=== PATIENT | male | born 1990 | race Caucasian/White ===

== ENCOUNTER 2017-05-23 11:35 | Emergency (ER) | payer MEDICAID ==
[~2017-05-23] VITALS: Ht 177.8 cm; Wt 106.0 kg
[2017-05-23 11:37] VITALS: Ht 177.8 cm; Wt 106.0 kg
[2017-05-23] MEDS ORDERED: HYDROCODONE/APAP (5/325) TAB PO ONE (12:00)
--- NOTE | 2017-05-23 12:35 | RADRPT ---
PROCEDURE: XR Hand. CLINICAL INDICATION: Partially wall. TECHNIQUE: Three views of the right hand were obtained. COMPARISON: No prior studies are available for comparison. FINDINGS: The bones of the hand appear intact, with no evidence of fracture, dislocation, or subluxation. Ther e is suggestion of minimal healed post fracture deformity of the fifth metacarpal. The joint spaces are preserved. Bone mineralization is normal. Mild soft tissue swelling is seen. IMPRESSION: 1. No acute osseous abnormality. 2. Mild soft tissue swelling. RPTAT: PP .Ney Hull MD, MD Date Time Electronically viewed and signed by .Ney Hull MD, MD on 05/23/2017 12:34 .d/
[2017-05-23] MEDS ORDERED: AMOX1TAB10 PO (13:07)
[2017-05-23] MEDS ORDERED: NAPR-688 PO (13:07)
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
== END 2017-05-23 13:21 | disposition home or self-care (01) ==
LOC: FTE 11:35
DX: L03.90 Cellulitis, unspecified (principal); S60.221A Contusion of right hand, initial encounter; W55.03XA Scratched by cat, initial encounter; Y92.9 Unspecified place or not applicable; Z87.891 Personal history of nicotine dependence
CPT/HCPCS: 73130; Z7502; Z7610

== ENCOUNTER 2017-08-04 12:50 | Emergency (ER) | payer OTHER ==
[~2017-08-04] VITALS: Ht 177.8 cm; Wt 109.0 kg
[~2017-08-04 12:50] MED LIST: AMOX1TAB10 PO; BEN25 PO; LORA10TA72 PO; NAPR-688 PO; NASO17 NASAL
[2017-08-04 13:29] VITALS: Ht 177.8 cm; Wt 109.0 kg
[2017-08-04] MEDS ORDERED: IPRATROPIUM (NEB) 0.5 MG/2.5 ML AMP NEB STA (16:32)
[2017-08-04] MEDS ORDERED: ALBUTEROL 0.083% (NEB) 2.5 MG/3 ML AMP NEB STA (16:32)
--- NOTE | 2017-08-04 16:34 | ERD ---
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 Patient has a secondary complaint of a smelly itchy scalp even after washing. ROS All systems reviewed and are negative except as per history of present illness. Medications Home Meds Active Scripts Albuterol Sulfate* (Proair HFA*) 8.5 Gm Hfa.aer.ad, 2 PUFF INH Q4, #1 INHALER Prov:SAMIA,FACUNDO 08/04/17 Doxycycline Hyclate* (Doxycycline Hyclate*) 100 Mg Tablet.dr, 100 MG PO BID for 7 Days, TAB Prov:SAMIA,FACUNDO 08/04/17 Diphenhydramine Hcl* (Benadryl*) 25 Mg Cap, 25 MG PO Q8 Y for ITCHING/RASH, #30 TAB Prov:RYAN GILL 07/17/17 Mometasone Furoate* (Nasonex*) 50 Mcg/Helen - 17 Gm Helen.pump, 2 SPRAY NASAL DAILY, #1 BOTTLE TO EACH NOSTRIL Prov:RYAN GILL 07/17/17 Loratadine (Loratadine) 10 Mg Tab.rapdis, 10 MG PO DAILY for 30 Days Prov:RYAN GILL 07/17/17 Naproxen* (Naproxen*) 500 Mg Tablet, 500 MG PO BID Y for PAIN, #20 TAB Prov:JAMAL RAMSEY DO 05/23/17 Amoxicillin/Potassium Clav (Amox-Clav 875-125 mg Tablet) 875-125 mg Tab, 1 TAB PO BID, #20 TAB Prov:JAMAL RAMSEY DO 05/23/17 Allergies Allergies: Coded Allergies: No Known Drug Allergies (Verified Allergy, Mild, 05/23/17) PMhx/Soc History of Surgery: No Anesthesia Reaction: No Hx Neurological Disorder: No Hx Respiratory Disorders: Yes (PNEUMONIA) Hx Cardiac Disorders: No Hx Psychiatric Problems: No Hx Miscellaneous Medical Probl: No Hx Alcohol Use: No Hx Substance Use: No Hx Tobacco Use: No Physical Exam Vitals Vital Signs Date Time Temp Pulse Resp B/P Pulse Ox O2 Delivery O2 Flow Rate FiO2 08/04/17 16:55 78 20 96 21 08/04/17 13:29 97.8 71 18 149/91 98 Vitals stable, triage notes reviewed Physical Exam Const: Well-appearing well-hydrated well-nourished male patient in no acute distress Head: Atraumatic , No scaly scalp, dandruff, papule, abrasion or lesions Eyes: Normal Conjunctiva, PERRLA, EOMI ENT: Bilateral tympanic membranes retracted, auditory canals are clear, nasal mucosa is edematous, turbinates +1, mucus noted, no crest or bleeding points. Pharynx is +3, tonsillar scarring with pitting, pink, mucous notedno ulcers, exudate, or blisters. Palpable cervical chain nodes Neck: Full range of motion..~ No meningismus. Resp: Clear to auscultation bilateral palpable cervical chain nodes, Cardio: Abd: Skin: Back: Ext: Neur: Awake and alert Psych: Normal Mood and Affect Results 24 hrs Current Medications Medications (Trade) Dose Ordered Sig/Milena Route PRN Reason Start Time Stop Time Status Last Admin Dose Admin Albuterol (Proventil 0.083% (Neb)) 5 mg ONCE STAT NEB 08/04/17 16:32 08/04/17 16:34 DC 08/04/17 16:51 Ipratropium [place] (Atrovent 0.02% (Neb)) 0.5 mg ONCE STAT NEB 08/04/17 16:32 08/04/17 16:34 DC 08/04/17 16:51 Ceftriaxone Sodium (Rocephin) 250 mg ONCE ONCE IM 08/04/17 17:30 08/04/17 17:31 DC 08/04/17 17:49 Azithromycin (Zithromax) 1,000 mg ONCE ONCE PO 08/04/17 17:30 08/04/17 17:31 DC 08/04/17 17:49 Lidocaine (Xylocaine 1% (Mdv) 20 ml) 20 ml STK-MED ONCE .ROUTE 08/04/17 17:40 08/04/17 17:41 DC Procedures/MDM This pleasant 27-year-old male patient presents to emergency department with several complaints. 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 Patient is requesting STD evaluation. Patient also reports that he has a odd smelling scalp even after washing, reports when he scratches it he gets thick scale. Patient emergency room course today includes a rapid strep swab, gonorrhea swab in throat. Prophylactic treatment for gonorrhea with 250 mg of intramuscularly of Rocephin and 1000 mg of azithromycin. Patient received albuterol, Atrovent hand-held nebulized treatment for shortness of breath and decreased breath sounds. Patient reassessed after interventions reported improvement of symptoms plan to discharge patient home with doxycycline, and an albuterol inhaler. Safe sex practices discussed. Patient is stable with no new complaints during ER course, clinically there is no current evidence to suggest meningitis,pneumonia, peritonsillar abscess pulmonary embolism or any other emergent condition appearing to require further evaluation or hospitalization. I feel the patient is stable for discharge at this time. I have discussed results, examination findings, the treatment plan with the patient and family present prior to discharge. Indications for emergent reevaluation, side effects of medication were also discussed. All questions were answered. Patient verbalizes understanding and agrees with plan of care. Departure Diagnosis: Primary Impression: STI (sexually transmitted infection) Additional Impression: Bronchitis Patient Instructions: Acute Bronchitis, If You Think You Have an STD Referrals: [facility] Additional Instructions: Thank you for for coming to [facility] for your care today. Please ask your nurse or provider if you have questions about your care today and do not leave until all your questions have been answered. Please use any medications given as directed and follow-up with your doctor (or the doctor you were referred to) in the next 2-3 days. If you do not have a primary care doctor you may follow up at the [facility] (listed below). You may also use motrin and tylenol as needed for fever and/or pain unless instructed otherwise by your provider or nurse. Indications for more urgent follow-up have been discussed, but you may return to the Emergency Department at ANY time for any worrisome or worsening symptoms. If you have abdominal pain, please know that no test or exam you received is perfect and you should follow up within 8 hours for continued pain. If you had any imaging studies today, such as an X-Ray or CT Scan, these studies will be reviewed later by a radiologist. You will be called if there are important findings that were not identified today, so make sure the contact information you provided at registration is correct. If you received any narcotic pain control medicine today, such as Vicodin, Morphine or Dilaudid, your coordination and judgment may be affected for a number of hours. Please do not drive or operate heavy machinery, and you may want someone to assist you at home. If you were given a prescription for narcotic medication, be aware that it is very addictive- use sparingly and only if necessary. FACUNDO GRACIA Aug 04, 2017 16:34
[2017-08-04] MEDS ORDERED: ALBU8.5H3 INH (17:21)
[2017-08-04] MEDS ORDERED: DOXY100T20 PO (17:21)
[2017-08-04] MEDS ORDERED: CEFTRIAXONE 250 MG INJ IM ONE (17:30)
[2017-08-04] MEDS ORDERED: AZITHROMYCIN 250 MG TAB PO ONE (17:30)
[2017-08-04] MEDS ORDERED: LIDOCAINE 1% (MDV) 20 ML INJ ONE (17:40)
== END 2017-08-04 18:07 | disposition home or self-care (01) ==
LOC: FTE 12:50
DX: A64 Unspecified sexually transmitted disease (principal); J20.9 Acute bronchitis, unspecified
CPT/HCPCS: 87070; 87880; 94664; 96372; J0696; Z7502; Z7610

== ENCOUNTER 2017-08-21 15:31 | Emergency (ER) | payer OTHER ==
[~2017-08-21] VITALS: Ht 167.6 cm; Wt 110.5 kg
[~2017-08-21 15:31] MED LIST changes: +ALBU8.5H3 INH; +DOXY100T20 PO
[2017-08-21 15:34] VITALS: Ht 167.6 cm; Wt 110.5 kg
[2017-08-21] MEDS ORDERED: ALBUTEROL 0.083% (NEB) 2.5 MG/3 ML AMP NEB STA (16:31)
--- NOTE | 2017-08-21 18:25 | RADRPT ---
PROCEDURE: Chest radiograph CLINICAL INDICATION: Shortness of breath. COMPARISON: None relevant listed. TECHNIQUE: Single frontal chest radiograph. FINDINGS: The lungs are clear. No pleural effusion or focal parenchymal opacity. The cardiomediastinal silhouette is normal. No suspicious bone lesion. IMPRESSION: No acute cardiopulmonary abnormality. RPTAT: PP Physician Demetrius Date Time Electronically viewed and signed by Rosi Mccarty Physician on 08/21/2017 18:24 LG/
[2017-08-21 18:40] VITALS: BP 135/74; PULSE 81; RESP 20; TEMP 97.3
[2017-08-21] MEDS ORDERED: ALBU8.5H3 INH (18:44)
[2017-08-21] MEDS ORDERED: LORA10CA PO (18:44)
[2017-08-21] MEDS ORDERED: ACET-2047 PO (18:45)
--- NOTE | 2017-08-21 19:03 | ERD ---
ER Documentation Chief Complaint Date/Time DATE: 08/21/17 TIME: 18:49 Chief Complaint Complains of SOB coughs up blood at times HPI This Is a 27-year-old male bipolar disorder recently released from [facility] presenting to the emergency department complaining of cough and shortness of breath for the past 2 weeks. Patient states that he coughs up yellow mucus that once had blood specks from coughing in the mornings. Patient states that he was evaluated at this facility 2 weeks prior to being seen and has received albuterol which has helped him. Patient denies any recent traveling, recent surgeries, or other medications. Patient admits to having a sore throat. Patient admits to having palpitations at this moment however he states that he just did 10 push-ups in the termination room because he was bored ROS All systems reviewed and are negative except as per history of present illness. Medications Home Meds Active Scripts Acetaminophen* (Acetaminophen*) 650 Mg Tablet, 650 MG PO Q6H Y for PAIN AND OR ELEVATED TEMP, #30 TAB Prov:MAKAYLA TO PA-C 08/21/17 Loratadine* (Claritin*) 10 Mg Capsule, 10 MG PO DAILY, #30 CAP Prov:MAKAYLA TO PA-C 08/21/17 Albuterol Sulfate* (Proair HFA*) 8.5 Gm Hfa.aer.ad, 2 PUFF INH Q4H Y for WHEEZING AND SOB, #1 INHALER Prov:MAKAYLA TO PA-C 08/21/17 Albuterol Sulfate* (Proair HFA*) 8.5 Gm Hfa.aer.ad, 2 PUFF INH Q4, #1 INHALER Prov:SAMIA,FACUNDO 08/04/17 Doxycycline Hyclate* (Doxycycline Hyclate*) 100 Mg Tablet.dr, 100 MG PO BID for 7 Days, TAB Prov:SAMIA,FACUNDO 08/04/17 Diphenhydramine Hcl* (Benadryl*) 25 Mg Cap, 25 MG PO Q8 Y for ITCHING/RASH, #30 TAB Prov:PASILABAN,ORALIAAR F 07/17/17 Mometasone Furoate* (Nasonex*) 50 Mcg/[place]iberty - 17 Gm Liberty.pump, 2 SPRAY NASAL DAILY, #1 BOTTLE TO EACH NOSTRIL Prov:RYAN GILL 07/17/17 Loratadine (Loratadine) 10 Mg Tab.rapdis, 10 MG PO DAILY for 30 Days Prov:RYAN GILL 07/17/17 Naproxen* (Naproxen*) 500 Mg Tablet, 500 MG PO BID Y for PAIN, #20 TAB Prov:JAMAL RAMSEY DO 05/23/17 Amoxicillin/Potassium Clav (Amox-Clav 875-125 mg Tablet) 875-125 mg Tab, 1 TAB PO BID, #20 TAB Prov:JAMAL RAMSEY DO 05/23/17 Allergies Allergies: Coded Allergies: No Known Drug Allergies (Verified Allergy, Mild, 05/23/17) PMhx/Soc History of Surgery: No Anesthesia Reaction: No Hx Neurological Disorder: No Hx Respiratory Disorders: Yes (PNEUMONIA) Hx Cardiac Disorders: No Hx Psychiatric Problems: Yes (bipolar) Hx Miscellaneous Medical Probl: No Hx Alcohol Use: No Hx Substance Use: No Hx Tobacco Use: No Physical Exam Vitals Vital Signs Date Time Temp Pulse Resp B/P Pulse Ox O2 Delivery O2 Flow Rate FiO2 08/21/17 18:40 97.3 81 20 135/74 98 Room Air 08/21/17 16:57 77 20 94 21 08/21/17 15:34 98.7 66 20 131/78 94 Physical Exam Const: NAD Head: Atraumatic Eyes: Normal Conjunctiva ENT: Normal External Ears, Nose and Mouth. Neck: Full range of motion..~ No meningismus. Resp: Clear to auscultation bilaterally Cardio: Regular rate and rhythm, no murmurs Abd: Soft, non tender, non distended. Normal bowel sounds Skin: No petechiae or rashes Back: No midline or flank tenderness Ext: No cyanosis, or edema Neur: Awake and alert Psych: Normal Mood and Affect Results 24 hrs Current Medications Medications (Trade) Dose Ordered Sig/Milena Route PRN Reason Start Time Stop Time Status Last Admin Dose Admin Albuterol (Proventil 0.083% (Neb)) 5 mg ONCE STAT NEB 08/21/17 16:31 08/21/17 16:33 DC 08/21/17 16:54 Procedures/MDM This is a 27-year-old male presenting to the emergency department combining of shortness of breath, cough for the past 2 weeks. On examination, patient did not have any evidence of respiratory distress. RT was consulted initially he was given albuterol since it has helped him 2 weeks prior to being seen, I have reassessed him and he states that he feels a lot better. Patient's pulse ox is 90%. He stable to be discharged home to follow-up with primary. There was no evidence of pulmonary embolism, respiratory distress, pneumonia. Chest x-ray did not show any evidence of infiltrates, pneumothorax or pleural effusion. EKG did not show any evidence of STEMI. Patient stable to be discharged home with prescription for albuterol and to follow-up with primary care physician. Discussed return to the ER for any worsening symptoms. He understands and agrees with this plan EKG: read and signed off by myself and Rate/Rhythm: [Normal Sinus Rhythm] QRS, ST, T-waves: [No changes consistent w/ acute ischemia] Impression: [No evidence of ischemia or arrhythmia] Departure Diagnosis: Primary Impression: Shortness of breath Additional Impression: URI (upper respiratory infection) Condition: Stable Patient Instructions: Coping with Shortness of Breath: Controlling Stress, Uri , Viral W/ Wheezing (Adult) Referrals: [facility] (PCP) Additional Instructions: FOLLOW UP WITH YOUR PRIMARY CARE PHYSICIAN TOMORROW.Return to this facility if you are not improving as expected. Take all medicines as directed. Return to this facility if you are not improving as expected. MAKAYLA TO PA-C Aug 21, 2017 18:59
== END 2017-08-21 18:56 | disposition home or self-care (01) ==
LOC: FTE 15:31
DX: R06.02 Shortness of breath (principal); J06.9 Acute upper respiratory infection, unspecified
CPT/HCPCS: 71010; 93005; 94664; Z7502; Z7610

== ENCOUNTER 2017-09-03 20:04 | Emergency (ER) | payer OTHER ==
[~2017-09-03] VITALS: Ht 177.8 cm; Wt 111.0 kg
[~2017-09-03 20:04] MED LIST changes: +ACET-2047 PO; +LORA10CA PO
[2017-09-03 20:39] VITALS: Ht 177.8 cm; Wt 111.0 kg
[2017-09-03] MEDS ORDERED: AZITHROMYCIN 250 MG TAB PO ONE (23:00)
[2017-09-03] MEDS ORDERED: CEFTRIAXONE 250 MG INJ IM ONE (23:00)
--- NOTE | 2017-09-03 23:13 | ERD ---
ER Documentation Chief Complaint Date/Time DATE: 09/03/17 TIME: 23:09 Chief Complaint SOB for 1 month PCP sent back HPI 27-year-old male presents here in emergency department for complaints of episodes of shortness breath and wheezing and cough for the last 1 month. Patient was given an inhaler by primary care doctor, has been having on and off. Patient also has been having some itchy nose, runny nose nasal congestion and sneezing. Patient denies any fever or chills. Patient denies any chest pain. Patient also wants to be checked for STDs, has been having sexual intercourse without any protection and wants to be treated. Patient denies any symptoms at this time, denies any dysuria, pyuria, or any discharge. ROS All systems reviewed and are negative except as per history of present illness. Medications Home Meds Active Scripts Acetaminophen* (Acetaminophen*) 650 Mg Tablet, 650 MG PO Q6H Y for PAIN AND OR ELEVATED TEMP, #30 TAB Prov:MAKAYLA TO PA-C 08/21/17 Loratadine* (Claritin*) 10 Mg Capsule, 10 MG PO DAILY, #30 CAP Prov:MAKAYLA TO PA-C 08/21/17 Albuterol Sulfate* (Proair HFA*) 8.5 Gm Hfa.aer.ad, 2 PUFF INH Q4H Y for WHEEZING AND SOB, #1 INHALER Prov:MAKAYLA TO PA-C 08/21/17 Albuterol Sulfate* (Proair HFA*) 8.5 Gm Hfa.aer.ad, 2 PUFF INH Q4, #1 INHALER Prov:SAMIA,FACUNDO 08/04/17 Doxycycline Hyclate* (Doxycycline Hyclate*) 100 Mg Tablet.dr, 100 MG PO BID for 7 Days, TAB Prov:SAMIA,FACUNDO 08/04/17 Diphenhydramine Hcl* (Benadryl*) 25 Mg Cap, 25 MG PO Q8 Y for ITCHING/RASH, #30 TAB Prov:RYAN GILL 07/17/17 Mometasone Furoate* (Nasonex*) 50 Mcg/[place] - 17 Gm [place].pump, 2 SPRAY NASAL DAILY, #1 BOTTLE TO EACH NOSTRIL Prov:PASILAMALVINKLAR F 07/17/17 Loratadine (Loratadine) 10 Mg Tab.rapdis, 10 MG PO DAILY for 30 Days Prov:RYAN GILL 07/17/17 Naproxen* (Naproxen*) 500 Mg Tablet, 500 MG PO BID Y for PAIN, #20 TAB Prov:JAMAL RAMSEY DO 05/23/17 Amoxicillin/Potassium Clav (Amox-Clav 875-125 mg Tablet) 875-125 mg Tab, 1 TAB PO BID, #20 TAB Prov:JAMAL RAMSEY DO 05/23/17 Allergies Allergies: Coded Allergies: No Known Drug Allergies (Verified Allergy, Mild, 05/23/17) PMhx/Soc History of Surgery: No Anesthesia Reaction: No Hx Neurological Disorder: No Hx Respiratory Disorders: Yes (PNEUMONIA) Hx Cardiac Disorders: No Hx Psychiatric Problems: Yes (bipolar) Hx Miscellaneous Medical Probl: No Hx Alcohol Use: No Hx Substance Use: No Hx Tobacco Use: No Smoking Status: Never smoker FmHx Family History: No coronary disease, No diabetes, No other Physical Exam Vitals Vital Signs Date Time Temp Pulse Resp B/P Pulse Ox O2 Delivery O2 Flow Rate FiO2 09/03/17 20:39 99.5 67 16 156/90 95 Physical Exam GENERAL: The patient is well developed and appropriate for usual state of health, in no apparent distress. CHEST: Clear to auscultation bilaterally. There are no rales, wheezes or rhonchi. HEART: Regular rate and rhythm. No murmurs, clicks, rubs or gallops. No S3 or S4. ABDOMEN: Soft, nontender and nondistended. Good bowel sounds. No rebound or guarding. No gross peritonitis. No gross organomegaly or masses. No Vivas sign or McBurney point tenderness. BACK: No midline or flank tenderness. EXTREMITIES: Equal pulses bilaterally. There is no peripheral clubbing, cyanosis or edema. No focal swelling or erythema. Full range of motion. Grossly neurovascularly intact. NEURO: Alert and oriented. Cranial nerves 2-12 intact. Motor strength in all 4 extremities with 5/5 strength. Sensation grossly intact. Normal speech and gait. SKIN: There is no apparent rash or petechia. The skin is warm and dry. HEMATOLOGIC AND LYMPHATIC: There is no evidence of excessive bruising or lymphedema. No gross cervical, axillary, or inguinal lymphadenopathy. Results 24 hrs Current Medications Medications (Trade) Dose Ordered Sig/Milena Route PRN Reason Start Time Stop Time Status Last Admin Dose Admin Ceftriaxone Sodium (Rocephin) 250 mg ONCE ONCE IM 09/03/17 23:00 09/03/17 23:01 DC 09/03/17 23:33 Azithromycin (Zithromax) 1,000 mg ONCE ONCE PO 09/03/17 23:00 09/03/17 23:01 DC 09/03/17 23:31 IM Rocephin and azithromycin was given here in emergency department for treatment for possible STD exposure. PROCEDURE: XR Chest. CLINICAL INDICATION: Dyspnea and wheezing. TECHNIQUE: Single frontal view of the chest. COMPARISON: None. FINDINGS: The cardiomediastinal silhouette is within normal limits. The lungs are clear. No signs of pleural fluid or pneumothorax are seen. The osseous structures and soft tissues are unremarkable. IMPRESSION: No evidence for active cardiopulmonary disease. 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 There is low suspicion for Pneumonia at this time since patients lungs sounds are clear, patient O2 saturation is normal and patient doesnt show any respiratory distress. Patients chest xray doesnt show infiltrates or any other cardiopulmonary emergencies at this time. There is low suspicion for other cardiopulmonary emergencies at this time such as CHF, Pulmonary Embolism, Pneumothorax, Aortic Aneurysm or any other cardiopulmonary emergencies at this time. There is low suspicion for sepsis. Patient appears well and is hemodynamically stable. Fever is controlled with medicines. Prophylactic treatment for STD gonorrhea and Chlamydia was given here in emergency department since patient is having sexual intercourse without any protection and is worried about exposure. Urine was sent for testing. Disposition: Home. Condition: Stable Prescriptions: Albuterol, Zyrtec, Beclomethasone Instructions: Patient is advised to take medications as prescribed. Patient is advised to rest. Patient advised to increase fluid intake, do humidifier at home and if possible, do salt water gargles. Patient is advised that if symptoms are worse, shortness of breath, uncontrolled fever, stridor, vomiting, worst signs and symptoms to return to emergency department immediately. Otherwise, patient is advised to follow up with primary doctor in 5-7 days. Disclaimer: Inadvertent spelling and grammatical errors are likely due to EHR/ dictation software use and do not reflect on the overall quality of patient care. Also, please note that the electronic time recorded on this note does not necessarily reflect the actual time of the patient encounter. Departure Diagnosis: Primary Impression: Reactive airway disease Asthma severity: unspecified severity Asthma persistence: unspecified Asthma complication type: uncomplicated Qualified Code: J45.909 - Reactive airway disease without complication, unspecified asthma severity, unspecified whether persistent Additional Impressions: Allergic rhinitis Chronicity: unspecified Allergic rhinitis trigger: unspecified Allergic rhinitis seasonality: unspecified seasonality Qualified Code: J30.9 - Allergic rhinitis, unspecified chronicity, unspecified seasonality, unspecified trigger STD exposure Condition: Stable Patient Instructions: Allergic Rhinitis, Bronchitis With Wheezing (Adult), For Teens: Get the Facts About STDs Additional Instructions: Patient is advised to take medications as prescribed. Patient is advised to rest. Patient advised to increase fluid intake, do humidifier at home and if possible, do salt water gargles. Patient is advised that if symptoms are worse, shortness of breath, uncontrolled fever, stridor, vomiting, worst signs and symptoms to return to emergency department immediately. Otherwise, patient is advised to follow up with primary doctor in 5-7 days. SY TAPIA NP Sep 03, 2017 23:13
--- NOTE | 2017-09-03 23:47 | RADRPT ---
PROCEDURE: XR Chest. CLINICAL INDICATION: Dyspnea and wheezing. TECHNIQUE: Single frontal view of the chest. COMPARISON: None. FINDINGS: The cardiomediastinal silhouette is within normal limits. The lungs are clear. No signs of pleural f luid or pneumothorax are seen. The osseous structures and soft tissues are unremarkable. IMPRESSION: No evidence for active cardiopulmonary disease. RPTAT: [facility] Physician Basilio Date Time Electronically viewed and signed by Physician Basilio on 09/03/2017 23:47 RS/
[2017-09-04] MEDS ORDERED: BECL8.7H NASAL (00:02)
[2017-09-04] MEDS ORDERED: CETI10CA PO (00:02)
[2017-09-04] MEDS ORDERED: ALBU8.5H3 INH (00:02)
== END 2017-09-04 00:16 | disposition home or self-care (01) ==
LOC: FTE 20:04
DX: J30.9 Allergic rhinitis, unspecified (principal); Z20.2 Contact with and (suspected) exposure to infections with a predominantly sexual mode of transmission
CPT/HCPCS: 71010; 87591; 96372; J0696; Z7502; Z7610

== ENCOUNTER 2017-10-04 11:30 | Emergency (ER) | payer OTHER ==
[~2017-10-04] VITALS: Ht 177.8 cm; Wt 111.9 kg
[~2017-10-04 11:30] MED LIST changes: +BECL8.7H NASAL; +CETI10CA PO
[2017-10-04 11:36] VITALS: Ht 177.8 cm; Wt 111.9 kg
[2017-10-04] MEDS ORDERED: KET2CR15 TOP (12:37)
[2017-10-04] MEDS ORDERED: BEN25 PO (12:37)
--- NOTE | 2017-10-09 12:00 | ERD ---
ER Documentation Chief Complaint Chief Complaint Pt with genital rash X 2 days after waxing his groin. HPI 27 year old male presents with genital rash after waxing. Patient states a friend waxed his groin and the next day he developed an itchy rash with small bumps. No drainage or bleeding. Patient has never gotten waxed before. Rash is limited to where wax was placed. No fevers. No recent unprotected sex. No penile discharge or penile lesions. Patient requesting STD testing. ROS All systems reviewed and are negative except as per history of present illness. Medications Home Meds Active Scripts Diphenhydramine Hcl* (Benadryl*) 25 Mg Cap, 25 MG PO Q6, #30 CAP Prov:GARETH RAMEY NP 10/04/17 Ketoconazole* (Ketoconazole* 2% Cream (15gm)) 1 Applic Cr, 1 APPLIC TOP BID for 7 Days, TUB Prov:GARETH RAMEY NP 10/04/17 Cetirizine Hcl* (Zyrtec*) 10 Mg Capsule, 10 MG PO DAILY, #30 TAB.CHEW Prov:SY TAPIA NP 09/04/17 Beclomethasone Dipropionate (QNASL) 8.7 Gm Hfa.aer.ad, 2 SPRAYS NASAL DAILY, #1 BOTTLE PER NOSTRIL Prov:SY TAPIA NP 09/04/17 Albuterol Sulfate* (Proair HFA*) 8.5 Gm Hfa.aer.ad, 2 PUFF INH Q4, #1 INHALER Prov:SY TAPIA NP 09/04/17 Acetaminophen* (Acetaminophen*) 650 Mg Tablet, 650 MG PO Q6H Y for PAIN AND OR ELEVATED TEMP, #30 TAB Prov:MAKAYLA TO PA-C 08/21/17 Loratadine* (Claritin*) 10 Mg Capsule, 10 MG PO DAILY, #30 CAP Prov:MAKAYLA TO PA-C 08/21/17 Albuterol Sulfate* (Proair HFA*) 8.5 Gm Hfa.aer.ad, 2 PUFF INH Q4H Y for WHEEZING AND SOB, #1 INHALER Prov:MAKAYLA TO PA-C 08/21/17 Albuterol Sulfate* (Proair HFA*) 8.5 Gm Hfa.aer.ad, 2 PUFF INH Q4, #1 INHALER Prov:SAMIA,FACUNDO 08/04/17 Doxycycline Hyclate* (Doxycycline Hyclate*) 100 Mg Tablet.dr, 100 MG PO BID for 7 Days, TAB Prov:SAMIA,FACUNDO 08/04/17 Diphenhydramine Hcl* (Benadryl*) 25 Mg Cap, 25 MG PO Q8 Y for ITCHING/RASH, #30 TAB Prov:PASILARYAN COOMBS 07/17/17 Mometasone Furoate* (Nasonex*) 50 Mcg/[place] - 17 Gm [place].pump, 2 SPRAY NASAL DAILY, #1 BOTTLE TO EACH NOSTRIL Prov:RYAN GILL 07/17/17 Loratadine (Loratadine) 10 Mg Tab.rapdis, 10 MG PO DAILY for 30 Days Prov:RYAN GILL 07/17/17 Naproxen* (Naproxen*) 500 Mg Tablet, 500 MG PO BID Y for PAIN, #20 TAB Prov:ROXYDONOVANJAMALSTEFANY CARRANZA 05/23/17 Amoxicillin/Potassium Clav (Amox-Clav 875-125 mg Tablet) 875-125 mg Tab, 1 TAB PO BID, #20 TAB Prov:JAMAL RAMSEY 05/23/17 Allergies Allergies: Coded Allergies: No Known Drug Allergies (Verified Allergy, Mild, 05/23/17) PMhx/Soc History of Surgery: No Anesthesia Reaction: No Hx Neurological Disorder: No Hx Respiratory Disorders: Yes (PNEUMONIA) Hx Cardiac Disorders: No Hx Psychiatric Problems: Yes (bipolar) Hx Miscellaneous Medical Probl: No Hx Alcohol Use: No Hx Substance Use: No Hx Tobacco Use: No Physical Exam Physical Exam Const: NAD Head: Atraumatic Eyes: Normal Conjunctiva ENT: Normal External Ears, Nose and Mouth. Neck: Full range of motion..~ No meningismus. Resp: Clear to auscultation bilaterally Skin: small erythematous papules scattered over groin with satellite lesions. no drainage or bleeding. No cysts or vesicles. Back: No midline or flank tenderness Ext: No cyanosis, or edema Neur: Awake and alert Psych: Normal Mood and Affect Results 24 hrs Laboratory Tests Test 10/04/17 12:50 Chlamydia trachomatis RNA (TMA) NOT DETECTED Chlamydia/GC Comment SEE NOTE Neisseria gonorrhoeae RNA (TMA) NOT DETECTED Procedures/MDM MDM: 27 year old male presents with rash to groin 1 day after having wax. There are small , scattered papules surrounding groin with sattelite lesions. No vesicles or cysts. No drainage or weeping. No bleeding. Patient describes rash as itchy. Non painful rash. urine gc ordered- results are negative. Patient likely has allergic dermatitis vs contact dermatitis. Patient is appropriate for outpatient management and will be given prescription for Ketoconazole cream and Benadryl. Instructed patient to follow up with PCP in the next week for reassessment. Return to ED for any new or worsening symptoms. Patient verbalizes understanding. Departure Diagnosis: Primary Impression: Rash and other nonspecific skin eruption Condition: Stable Patient Instructions: Self-Care for Skin Rashes Referrals: [facility] (PCP) Additional Instructions: Call your primary care doctor TOMORROW for an appointment during the next 2-3 days.See the doctor sooner or return here if your condition worsens before your appointment time. Return to ED for any high fever, chest pain, difficulty breathing, shortness breath, wheezing, vomiting, diarrhea, abdominal pain or any new or worsening symptoms. GARETH RAMEY NP Oct 09, 2017 12:00
[2017-10-15] MEDS ORDERED: CLOT30CR24 TOP (02:56)
[2017-10-15] MEDS ORDERED: BEN50 PO (02:56)
[2017-10-15] MEDS ORDERED: FLUC150T17 PO (02:56)
== END 2017-10-04 13:02 | disposition home or self-care (01) ==
LOC: FTE 11:30
DX: R21 Rash and other nonspecific skin eruption (principal)
CPT/HCPCS: 87591; Z7502; 99283

== ENCOUNTER → 2017-10-15 | Emergency (ER) | payer OTHER ==
[~2017-10-15] VITALS: Ht 180.3 cm; Wt 112.0 kg
[~2017-10-15] MED LIST changes: +BEN50 PO; +CLOT30CR24 TOP; +FLUC150T17 PO; +KET2CR15 TOP
[2017-10-15 00:13] VITALS: Ht 180.3 cm; Wt 112.0 kg
--- NOTE | 2017-10-15 03:31 | ERD ---
ER Documentation Chief Complaint Chief Complaint Rash in the groin area 3 days HPI 27-year-old male presents to emergency department for complaints of rash in the groin area and penile area for 3 days. Patient has been itching on affected area. Patient denies any penile discharge. Patient denies any new sexual partners. Patient denies any hematuria or dysuria. Patient denies any rash in other parts of the body. ROS All systems reviewed and are negative except as per history of present illness. Medications Home Meds Active Scripts Diphenhydramine Hcl* (Benadryl*) 50 Mg Cap, 50 MG PO Q6H Y for ITCHING/RASH, # 30 CAP Prov:SY TAPIA NP 10/15/17 Fluconazole* (Diflucan*) 150 Mg Tablet, 150 MG PO ONCE, #1 TAB Prov:SY TAPIA NP 10/15/17 Clotrimazole* (Clotrimazole* AF) 1% - 30 Gm Cream.gm., 1 APPLIC TOP BID for 7 Days, TUB Prov:SY TAPIA NP 10/15/17 Diphenhydramine Hcl* (Benadryl*) 25 Mg Cap, 25 MG PO Q6, #30 CAP Prov:AGRETH RAMEY NP 10/04/17 Ketoconazole* (Ketoconazole* 2% Cream (15gm)) 1 Applic Cr, 1 APPLIC TOP BID for 7 Days, TUB Prov:GARETH RAMEY NP 10/04/17 Cetirizine Hcl* (Zyrtec*) 10 Mg Capsule, 10 MG PO DAILY, #30 TAB.CHEW Prov:SY TAPIA NP 09/04/17 Beclomethasone Dipropionate (QNASL) 8.7 Gm Hfa.aer.ad, 2 SPRAYS NASAL DAILY, #1 BOTTLE PER NOSTRIL Prov:SY TAPIA NP 09/04/17 Albuterol Sulfate* (Proair HFA*) 8.5 Gm Hfa.aer.ad, 2 PUFF INH Q4, #1 INHALER Prov:SY TAPIA NP 09/04/17 Acetaminophen* (Acetaminophen*) 650 Mg Tablet, 650 MG PO Q6H Y for PAIN AND OR ELEVATED TEMP, #30 TAB Prov:MAKAYLA TO PA-C 08/21/17 Loratadine* (Claritin*) 10 Mg Capsule, 10 MG PO DAILY, #30 CAP Prov:MAKAYLA TO PA-C 08/21/17 Albuterol Sulfate* (Proair HFA*) 8.5 Gm Hfa.aer.ad, 2 PUFF INH Q4H Y for WHEEZING AND SOB, #1 INHALER Prov:MAKAYLA TO PA-C 08/21/17 Albuterol Sulfate* (Proair HFA*) 8.5 Gm Hfa.aer.ad, 2 PUFF INH Q4, #1 INHALER Prov:SAMIA,FACUNDO 08/04/17 Doxycycline Hyclate* (Doxycycline Hyclate*) 100 Mg Tablet.dr, 100 MG PO BID for 7 Days, TAB Prov:SAMIA,FACUNDO 08/04/17 Diphenhydramine Hcl* (Benadryl*) 25 Mg Cap, 25 MG PO Q8 Y for ITCHING/RASH, #30 TAB Prov:RYAN GILL 07/17/17 Mometasone Furoate* (Nasonex*) 50 Mcg/[place] - 17 Gm [place].pump, 2 SPRAY NASAL DAILY, #1 BOTTLE TO EACH NOSTRIL Prov:TIFFANIEСВЕТЛАНАORALIAREJI Harman 07/17/17 Loratadine (Loratadine) 10 Mg Tab.rapdis, 10 MG PO DAILY for 30 Days Prov:RYAN GILL 07/17/17 Naproxen* (Naproxen*) 500 Mg Tablet, 500 MG PO BID Y for PAIN, #20 TAB Prov:JAMAL RAMSEY DO 05/23/17 Amoxicillin/Potassium Clav (Amox-Clav 875-125 mg Tablet) 875-125 mg Tab, 1 TAB PO BID, #20 TAB Prov:JAMAL RAMSEY DO 05/23/17 Allergies Allergies: Coded Allergies: No Known Drug Allergies (Verified Allergy, Mild, 10/15/17) PMhx/Soc History of Surgery: No Anesthesia Reaction: No Hx Neurological Disorder: No Hx Respiratory Disorders: Yes (PNEUMONIA) Hx Cardiac Disorders: No Hx Psychiatric Problems: Yes (bipolar) Hx Miscellaneous Medical Probl: No Hx Alcohol Use: No Hx Substance Use: No Hx Tobacco Use: No Smoking Status: Never smoker FmHx Family History: No coronary disease, No diabetes, No other Physical Exam Vitals Vital Signs Date Time Temp Pulse Resp B/P Pulse Ox O2 Delivery O2 Flow Rate FiO2 10/15/17 00:13 98.4 62 20 135/74 98 Physical Exam GENERAL: The patient is well developed and appropriate for usual state of health, in no apparent distress. CHEST: Clear to auscultation bilaterally. There are no rales, wheezes or rhonchi. HEART: Regular rate and rhythm. No murmurs, clicks, rubs or gallops. No S3 or S4. ABDOMEN: Soft, nontender and nondistended. Good bowel sounds. No rebound or guarding. No gross peritonitis. No gross organomegaly or masses. No Vivas sign or McBurney point tenderness. BACK: No midline or flank tenderness. EXTREMITIES: Equal pulses bilaterally. There is no peripheral clubbing, cyanosis or edema. No focal swelling or erythema. Full range of motion. Grossly neurovascularly intact. NEURO: Alert and oriented. Cranial nerves 2-12 intact. Motor strength in all 4 extremities with 5/5 strength. Sensation grossly intact. Normal speech and gait. SKIN: There is no apparent rash or petechia. The skin is warm and dry. HEMATOLOGIC AND LYMPHATIC: There is no evidence of excessive bruising or lymphedema. No gross cervical, axillary, or inguinal lymphadenopathy. : Noted erythema in bilateral groin area with satellite lesions, noted erythema in the penile area. No other lesions noted. No penile discharge noted. No scrotal redness or tenderness noted Procedures/MDM Medical decision making: Patient symptoms was likely is consistent with fungal infection, tinea cruris and balanitis Sari. No symptoms of any STDs. No symptoms of any MRSA infection. No symptoms of any abscesses, no symptoms of any cellulitis. Prescription was given for Diflucan, clotrimazole cream, Benadryl, is advised to follow-up with primary care doctor in 2 days for reevaluation of symptoms, artery affected area. Patient was advised to return to emergency department for any worsening symptoms. Disposition: Home. Stable. Departure Diagnosis: Primary Impression: Balanitis Additional Impression: Tinea cruris Condition: Stable Patient Instructions: Balanitis, Tinea Cruris, Jock Itch CUISIA,SY MCNAIR T. 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
== END | disposition home or self-care (01) ==
LOC: FTE 00:11
DX: N48.1 Balanitis (principal); B35.6 Tinea cruris
CPT/HCPCS: 99283

== ENCOUNTER 2018-01-15 15:34 | Emergency (ER) | END 2018-01-15 17:50 | disposition left against medical advice (07) ==

== ENCOUNTER 2018-01-28 11:20 | Emergency (ER) | END 2018-01-28 19:19 | disposition home or self-care (01) ==

== ENCOUNTER 2018-06-18 13:28 | Emergency (ER) | END 2018-06-18 14:53 | disposition home or self-care (01) ==

== ENCOUNTER 2018-08-24 14:37 | Emergency (ER) | END 2018-08-24 16:30 | disposition home or self-care (01) ==

== ENCOUNTER 2018-11-04 09:30 | Emergency (ER) | END 2018-11-04 11:56 | disposition home or self-care (01) ==

== ENCOUNTER 2019-02-17 03:23 | Emergency (ER) | payer OTHER ==
[~2019-02-17] VITALS: Ht 180.3 cm; Wt 108.5 kg
[~2019-02-17 03:23] MED LIST changes: -ALBU8.5H3 INH; +ALBU8.5H8 INH; +CEPH500C PO; +DOXY100T21 PO; +FLUC150T PO; -FLUC150T17 PO; +HC30CR25 TOP; +IBUP-1542 PO; +MUPI22OI2 TOP; +SULF1TAB31 PO
[2019-02-17 03:38] VITALS: BP 136/79; PULSE 91; RESP 18; Ht 180.3 cm; Wt 108.5 kg
--- NOTE | 2019-02-17 05:58 | ERD ---
ER Documentation Chief Complaint Chief Complaint watery eyes, runny nose/cough since yesterday, also c/o left big toe pain HPI This is a 28-year-old male presents emergency department with complaints of cough, runny nose, watery eyes. Stated that he has been sneezing every morning. Also complains of left big toe ingrown nail. Stated it he was here about 2 months ago for the same and had a partial toenail removal. Denies headache, head injury, loss of consciousness, dizziness, neck pain, neck stiffness, throat pain, difficulty swallowing, difficulty breathing lying flat, shoulder pain, chest pain, back pain, abdominal pain, nausea, vomiting, constipation, diarrhea, urinary symptoms, loss of bowel and bladder control, trauma, injury, falls, difficulty walking due to pain, numbness or tingling sensation, calf pain, recent travel, recent major surgery in the last 3 weeks, calf pain, recent long travel, recent exposure to any illness, recent antibiotic use in the last 3 months, fever, chills, seizures. Past medical history: Surgical history: Social: Denies smoking, use of alcoholic beverages, use of illegal drugs. ROS All systems reviewed and are negative except as per history of present illness. Medications Home Meds Active Scripts Mupirocin* (Bactroban*) 2% -22 Gram Oint...g., 1 APPLIC TOP BID for 7 Days, EA Prov:RYAN GILL 02/17/19 Hydroxyzine Hcl* (Hydroxyzine Hcl*) 50 Mg Tablet, 50 MG PO Q6H PRN for allergic symptoms, #30 TAB Prov:RYAN GILL 02/17/19 Mometasone Furoate* (Nasonex*) 50 Mcg/[place] - 17 Gm [place].pump, 1 SPRAY NASAL BID, #1 BOTTLE IN EACH NOSTRIL Prov:TIFFANIEILARYAN COOMBS 02/17/19 Ibuprofen* (Motrin*) 800 Mg Tab, 800 MG PO Q6H PRN for PAIN AND OR ELEVATED TEMP, #30 TAB Prov:PASILARYAN COOMBS F 02/17/19 Loratadine* (Loratadine*) 10 Mg Tablet, 10 MG PO DAILY, #30 TAB Prov:RYAN GILL 02/17/19 Cephalexin* (Keflex*) 500 Mg Capsule, 500 MG PO TID for 7 Days, CAP Prov:RYAN GILL 02/17/19 Cephalexin* (Cephalexin*) 500 Mg Capsule, 500 MG PO Q6, #28 CAP Prov:KAEL GARCIA PA-C 12/22/18 Sulfamethoxazole/Trimethoprim* (Bactrim Ds* Tablet) 1 Each Tablet, 1 TAB PO BID, #14 TAB Prov:KAEL GARCIA PA-C 12/22/18 Ibuprofen* (Motrin*) 600 Mg Tab, 600 MG PO Q6, #15 TAB Prov:KARAN PATIÑO MD 11/04/18 Doxycycline Monohydrate* (Doxycycline Monohydrate*) 100 Mg Tablet, 100 MG PO BID for 7 Days, TAB Prov:KARAN PATÑIO MD 08/24/18 Ibuprofen* (Motrin*) 600 Mg Tab, 600 MG PO Q6, #15 TAB Prov:KARAN PATIÑO MD 08/24/18 Hydrocortisone* Topical (Hydrocortisone* Topical) 2.5%-28.3 Gm Cream..g., 1 APPLIC TOP BID, #1 TUB Prov:GLENN SUTHERLAND PA-C 06/18/18 Diphenhydramine Hcl* (Benadryl*) 50 Mg Cap, 50 MG PO Q6 PRN for rash, #30 CAP Prov:GLENN SUTHERLAND PA-C 06/18/18 Mupirocin* (Bactroban*) 2% -22 Gram Oint...g., 1 APPLIC TOP BID for 7 Days, EA Prov:JOHANNA CASTANEDA PA-C 01/28/18 Ibuprofen* (Motrin*) 600 Mg Tab, 600 MG PO Q6, #30 TAB Prov:JOHANNA CASTANEDA PA-C 01/28/18 Amoxicillin/Potassium Clav (Amox-Clav 875-125 mg Tablet) 875-125 mg Tab, 1 TAB PO BID for 10 Days, #20 TAB Prov:JOHANNA CASTANEDA PA-C 01/28/18 Diphenhydramine Hcl* (Benadryl*) 50 Mg Cap, 50 MG PO Q6H PRN for ITCHING/RASH, #30 CAP Prov:SY TAPIA NP 10/15/17 Fluconazole* (Diflucan*) 150 Mg Tablet, 150 MG PO ONCE, #1 TAB Prov:SY TAPIA NP 10/15/17 Clotrimazole* (Clotrimazole* AF) 1% - 30 Gm Cream.gm., 1 APPLIC TOP BID for 7 Days, TUB Prov:SY TAPIA NP 10/15/17 Diphenhydramine Hcl* (Benadryl*) 25 Mg Cap, 25 MG PO Q6, #30 CAP Prov:GARETH RAMEY NP 10/04/17 Ketoconazole* (Ketoconazole* 2% Cream (15gm)) 1 Applic Cr, 1 APPLIC TOP BID for 7 Days, TUB Prov:GARETH RAMEY NP 10/04/17 Cetirizine Hcl* (Zyrtec*) 10 Mg Capsule, 10 MG PO DAILY, #30 TAB.CHEW Prov:SY TAPIA NP 09/04/17 Beclomethasone Dipropionate (QNASL) 8.7 Gm Hfa.aer.ad, 2 SPRAYS NASAL DAILY, #1 BOTTLE PER NOSTRIL Prov:SY TAPIA NP 09/04/17 Albuterol Sulfate* (Proair HFA*) 8.5 Gm Hfa.aer.ad, 2 PUFF INH Q4, #1 INHALER Prov:SY TAPIA NP 09/04/17 Acetaminophen* (Acetaminophen*) 650 Mg Tablet, 650 MG PO Q6H PRN for PAIN AND OR ELEVATED TEMP, #30 TAB Prov:MAKAYLA TO PA-C 08/21/17 Loratadine* (Claritin*) 10 Mg Capsule, 10 MG PO DAILY, #30 CAP Prov:MAKAYLA TO PA-C 08/21/17 Albuterol Sulfate* (Proair HFA*) 8.5 Gm Hfa.aer.ad, 2 PUFF INH Q4H PRN for WHEEZING AND SOB, #1 INHALER Prov:MAKAYLA TO PA-C 08/21/17 Albuterol Sulfate* (Proair HFA*) 8.5 Gm Hfa.aer.ad, 2 PUFF INH Q4, #1 INHALER Prov:SAMIAFACUNDO 9/12/17 Doxycycline Hyclate* (Doxycycline Hyclate*) 100 Mg Tablet.dr, 100 MG PO BID for 7 Days, TAB Prov:FACUNDO GRACIA 08/04/17 Diphenhydramine Hcl* (Benadryl*) 25 Mg Cap, 25 MG PO Q8 PRN for ITCHING/RASH, #30 TAB Prov:PASRYAN SOTOMAYOR 07/17/17 Mometasone Furoate* (Nasonex*) 50 Mcg/[place] - 17 Gm [place].pump, 2 SPRAY NASAL DAILY, #1 BOTTLE TO EACH NOSTRIL Prov:RYAN GILL 07/17/17 Loratadine (Loratadine) 10 Mg Tab.rapdis, 10 MG PO DAILY for 30 Days Prov:RYAN GILL 07/17/17 Naproxen* (Naproxen*) 500 Mg Tablet, 500 MG PO BID PRN for PAIN, #20 TAB Prov:JAMAL RAMSEY DO 05/23/17 Amoxicillin/Potassium Clav (Amox-Clav 875-125 mg Tablet) 875-125 mg Tab, 1 TAB PO BID, #20 TAB Prov:JAMAL RAMSEY DO 05/23/17 Allergies Allergies: Coded Allergies: No Known Drug Allergies (Verified Allergy, Mild, 02/17/19) PMhx/Soc History of Surgery: No Anesthesia Reaction: No Hx Neurological Disorder: No Hx Respiratory Disorders: Yes (PNEUMONIA) Hx Cardiac Disorders: No Hx Psychiatric Problems: Yes (bipolar) Hx Miscellaneous Medical Probl: No Hx Alcohol Use: No (denies) Hx Substance Use: No (denies) Hx Tobacco Use: No (denies) Physical Exam Vitals Physical Exam Const: No acute distress Head: Atraumatic Eyes: Normal Conjunctiva ENT: Normal External Ears, Nose and Mouth. Bilateral ears: TMs are not erythematous. No bleeding. No discharge with no hearing loss. No mastoid tenderness. Nose: There is no frontal or maxillary sinus tenderness palpation. Throat: Uvula is midline and nondisplaced. Tonsils are +1 bilaterally without redness without exudates. Tolerating secretions. Patent airway. Speaks full and clear sentences. Patent airway. No tripoding. Neck: Full range of motion. No meningismus. No nuchal rigidity. No signs of meningeal irritation. Resp: Clear to auscultation bilaterally. No accessory muscle use in breathing. Cardio: Regular rate and rhythm, no murmurs Abd: Soft, non tender, non distended. Normal bowel sounds. Skin: No petechiae or rashes. Color appears normal for ethnicity. Back: No midline or flank tenderness Ext: No cyanosis, or edema. Left big toe swelling laterally. Good and full range of motion of the left big toe. No subungual hematoma. No signs of paronychia. No signs of onychomycosis. Left pedal pulses within normal limits. Left ankle is unremarkable. Left calf is no tenderness. Left knee is u nremarkable. Bilateral hips are stable and unremarkable. Right lower extremity is unremarkable. Neur: Awake and alert. No neurological deficit. Psych: Normal Mood and Affect Results 24 hrs Current Medications Medications Dose Sig/Milena Start Time Status Last (Trade) Ordered Route PRN Stop Time Admin Dose Reason Admin Prednisone 40 mg ONCE ONCE 02/17/19 DC 02/17/19 (Prednisone) PO 06:30 06:45 02/17/19 06:31 Ibuprofen 800 mg ONCE ONCE 02/17/19 DC 02/17/19 (Motrin) PO 06:30 06:44 02/17/19 06:31 25 mg ONCE ONCE 02/17/19 DC 02/17/19 Diphenhydrami PO 06:30 06:44 ne HCl 02/17/19 06:31 (Benadryl) Procedures/MDM Diagnostic tests: Clinical exam. Treatment: Motrin. Prednisone. Benadryl. Re-evaluation: Denies pain. Differential diagnosis I have low suspicion for pneumonia, sepsis, peritonsillar abscess, mastoiditis, meningitis, subungual hematoma, infected ingrown toenail, paronychia, onychomycosis, felon. Final diagnosis: Ingrown toenail. Allergic rhinitis. Upper respiratory infection. Prescription: Motrin. Nasonex. Prednisone. Claritin daily. Benadryl as needed. Bactroban. Keflex. Follow-up with PCP in the next 24-48 hours. Follow-up with environmental sampler in the next 24-48 hours. Come back here in the emergency department for any new symptoms or any worsening symptoms. All questions and concerns were answered. Patient and family members verbalized understanding and agreed with plan of care. Hemodynamically stable on discharge. Departure Diagnosis: Primary Impression: Ingrown toenail Additional Impressions: Allergic rhinitis URI (upper respiratory infection) Condition: Stable Additional Instructions: Follow-up with PCP in the next 24-48 hours. Follow-up with environmental sampler in the next 24-48 hours. Come back here in the emergency department for any new symptoms or any worsening symptoms. RYAN GILL Feb 17, 2019 05:58
[2019-02-17] MEDS ORDERED: LORA10TA3 PO (06:05)
[2019-02-17] MEDS ORDERED: CEPH-443 PO (06:05)
[2019-02-17] MEDS ORDERED: IBUP800T48 PO (06:05)
[2019-02-17] MEDS ORDERED: HYDR50TA15 PO (06:06)
[2019-02-17] MEDS ORDERED: NASO17 NASAL (06:06)
[2019-02-17] MEDS ORDERED: MUPI22OI2 TOP (06:07)
[2019-02-17] MEDS ORDERED: DIPHENHYDRAMINE 25 MG CAP PO ONE (06:30)
[2019-02-17] MEDS ORDERED: predniSONE 20 MG TAB PO ONE (06:30)
[2019-02-17] MEDS ORDERED: IBUPROFEN 800 MG TAB PO ONE (06:30)
== END 2019-02-17 07:04 | disposition home or self-care (01) ==
LOC: FTE 03:23
DX: L60.0 Ingrowing nail (principal); J30.9 Allergic rhinitis, unspecified; J06.9 Acute upper respiratory infection, unspecified
CPT/HCPCS: J7512; Z7502; Z7610; 99283

== ENCOUNTER 2019-04-22 02:12 | Emergency (ER) | payer OTHER ==
[~2019-04-22] VITALS: Ht 177.8 cm; Wt 108.7 kg
[~2019-04-22 02:12] MED LIST changes: +CEPH-443 PO; +HYDR50TA15 PO; +IBUP800T48 PO; +LORA10TA3 PO
[2019-04-22 02:16] VITALS: BP 145/77; PULSE 83; RESP 16; Ht 177.8 cm; Wt 108.7 kg
--- NOTE | 2019-04-22 04:26 | ERD ---
ER Documentation Chief Complaint Chief Complaint left infected big toe with drainage x 1 day HPI This is a 28-year-old male presents emergency department with complaints of left big toe swelling and pain. Stated that he has history of ingrown toenail to his left big toe. Denies headache, head injury, loss of consciousness, dizziness, neck pain, neck stiffness, throat pain, difficulty swallowing, difficulty breathing lying flat, shoulder pain, chest pain, back pain, abdominal pain, nausea, vomiting, constipation, diarrhea, urinary symptoms, loss of bowel and bladder control, trauma, injury, falls, difficulty walking due to pain, numbness or tingling sensation, calf pain, recent travel, recent major surgery in the last 3 weeks, calf pain, recent long travel, recent exposure to any illness, recent antibiotic use in the last 3 months, fever, chills, seizures. Past medical history: Surgical history: Social: Denies smoking, use of alcoholic beverages, use of illegal drugs. ROS All systems reviewed and are negative except as per history of present illness. Medications Home Meds Active Scripts Tramadol HCl (Tramadol HCl) 50 Mg Tablet, 50 MG PO Q4 PRN for SEVERE PAIN LEVEL 7-10, #5 TAB Prov:PASILARYAN COOMBS F 04/22/19 Sulfamethoxazole/Trimethoprim* (Bactrim Ds* Tablet) 1 Each Tablet, 1 TAB PO BID for 7 Days, #14 TAB Prov:PASILABANRYAN F 04/22/19 Cephalexin* (Keflex*) 500 Mg Capsule, 500 MG PO TID for 7 Days, CAP Prov:PASILARYAN COOMBS F 04/22/19 Ibuprofen* (Motrin*) 800 Mg Tab, 800 MG PO Q6H PRN for PAIN AND OR ELEVATED TEMP, #30 TAB Prov:PASILABANRYAN F 04/22/19 Mupirocin* (Bactroban*) 2% -22 Gram Oint...g., 1 APPLIC TOP BID for 7 Days, EA Prov:PASILABANRYAN F 02/17/19 Hydroxyzine Hcl* (Hydroxyzine Hcl*) 50 Mg Tablet, 50 MG PO Q6H PRN for allergic symptoms, #30 TAB Prov:PASILABANORALIAAR F 02/17/19 Mometasone Furoate* (Nasonex*) 50 Mcg/[place] - 17 Gm [place].pump, 1 SPRAY NASAL BID, #1 BOTTLE IN EACH NOSTRIL Prov:RYAN GILL 02/17/19 Ibuprofen* (Motrin*) 800 Mg Tab, 800 MG PO Q6H PRN for PAIN AND OR ELEVATED TEMP, #30 TAB Prov:TIFFANIEILARYAN COOMBS 02/17/19 Loratadine* (Loratadine*) 10 Mg Tablet, 10 MG PO DAILY, #30 TAB Prov:RYAN GILL 02/17/19 Cephalexin* (Keflex*) 500 Mg Capsule, 500 MG PO TID for 7 Days, CAP Prov:RYAN GILL 02/17/19 Cephalexin* (Cephalexin*) 500 Mg Capsule, 500 MG PO Q6, #28 CAP Prov:KAEL GARCIA PA-C 12/22/18 Sulfamethoxazole/Trimethoprim* (Bactrim Ds* Tablet) 1 Each Tablet, 1 TAB PO BID, #14 TAB Prov:KAEL GARCIA PA-C 12/22/18 Ibuprofen* (Motrin*) 600 Mg Tab, 600 MG PO Q6, #15 TAB Prov:KARAN PATIÑO MD 11/04/18 Doxycycline Monohydrate* (Doxycycline Monohydrate*) 100 Mg Tablet, 100 MG PO BID for 7 Days, TAB Prov:KARAN PATIÑO MD 08/24/18 Ibuprofen* (Motrin*) 600 Mg Tab, 600 MG PO Q6, #15 TAB Prov:KARAN PATIÑO MD 08/24/18 Hydrocortisone* Topical (Hydrocortisone* Topical) 2.5%-28.3 Gm Cream..g., 1 APPLIC TOP BID, #1 TUB Prov:GLENN SUTHERLAND PA-C 06/18/18 Diphenhydramine Hcl* (Benadryl*) 50 Mg Cap, 50 MG PO Q6 PRN for rash, #30 CAP Prov:GLENN SUTHERLAND PA-C 06/18/18 Mupirocin* (Bactroban*) 2% -22 Gram Oint...g., 1 APPLIC TOP BID for 7 Days, EA Prov:JOHANNA CASTANEDA PA-C 01/28/18 Ibuprofen* (Motrin*) 600 Mg Tab, 600 MG PO Q6, #30 TAB Prov:JOHANNA CASTANEDA PA-C 01/28/18 Amoxicillin/Potassium Clav (Amox-Clav 875-125 mg Tablet) 875-125 mg Tab, 1 TAB PO BID for 10 Days, #20 TAB Prov:JOHANNA CASTANEDA PA-C 01/28/18 Diphenhydramine Hcl* (Benadryl*) 50 Mg Cap, 50 MG PO Q6H PRN for ITCHING/RASH, #30 CAP Prov:SY TAPIA NP 10/15/17 Fluconazole* (Diflucan*) 150 Mg Tablet, 150 MG PO ONCE, #1 TAB Prov:SY TAPIA NP 10/15/17 Clotrimazole* (Clotrimazole* AF) 1% - 30 Gm Cream.gm., 1 APPLIC TOP BID for 7 Days, TUB Prov:YS TAPIA NP 10/15/17 Diphenhydramine Hcl* (Benadryl*) 25 Mg Cap, 25 MG PO Q6, #30 CAP Prov:GARETH RAMEY NP 10/04/17 Ketoconazole* (Ketoconazole* 2% Cream (15gm)) 1 Applic Cr, 1 APPLIC TOP BID for 7 Days, TUB Prov:GARETH RAMEY NP 10/04/17 Cetirizine Hcl* (Zyrtec*) 10 Mg Capsule, 10 MG PO DAILY, #30 TAB.CHEW Prov:SY TAPIA NP 09/04/17 Beclomethasone Dipropionate (QNASL) 8.7 Gm Hfa.aer.ad, 2 SPRAYS NASAL DAILY, #1 BOTTLE PER NOSTRIL Prov:SY TAPIA NP 09/04/17 Albuterol Sulfate* (Proair HFA*) 8.5 Gm Hfa.aer.ad, 2 PUFF INH Q4, #1 INHALER Prov:SY TAPIA NP 09/04/17 Acetaminophen* (Acetaminophen*) 650 Mg Tablet, 650 MG PO Q6H PRN for PAIN AND OR ELEVATED TEMP, #30 TAB Prov:MAKAYLA TO PA-C 08/21/17 Loratadine* (Claritin*) 10 Mg Capsule, 10 MG PO DAILY, #30 CAP Prov:MAKAYLA TO PA-C 08/21/17 Albuterol Sulfate* (Proair HFA*) 8.5 Gm Hfa.aer.ad, 2 PUFF INH Q4H PRN for WHEEZING AND SOB, #1 INHALER Prov:MAKAYLA TO PA-C 08/21/17 Albuterol Sulfate* (Proair HFA*) 8.5 Gm Hfa.aer.ad, 2 PUFF INH Q4, #1 INHALER Prov:SAMIA,FACUNDO 08/04/17 Doxycycline Hyclate* (Doxycycline Hyclate*) 100 Mg Tablet.dr, 100 MG PO BID for 7 Days, TAB Prov:SAMIA,FACUNDO 08/04/17 Diphenhydramine Hcl* (Benadryl*) 25 Mg Cap, 25 MG PO Q8 PRN for ITCHING/RASH, #30 TAB Prov:PASRYAN SOTOMAYOR 07/17/17 Mometasone Furoate* (Nasonex*) 50 Mcg/[place] - 17 Gm [place].pump, 2 SPRAY NASAL DAILY, #1 BOTTLE TO EACH NOSTRIL Prov:RYAN GILL 07/17/17 Loratadine (Loratadine) 10 Mg Tab.rapdis, 10 MG PO DAILY for 30 Days Prov:TIFFANIEСВЕТЛАНАRYAN Harman 07/17/17 Naproxen* (Naproxen*) 500 Mg Tablet, 500 MG PO BID PRN for PAIN, #20 TAB Prov:JAMAL RAMSEY DO 05/23/17 Amoxicillin/Potassium Clav (Amox-Clav 875-125 mg Tablet) 875-125 mg Tab, 1 TAB PO BID, #20 TAB Prov:JAMAL RAMSEY DO 05/23/17 Allergies Allergies: Coded Allergies: No Known Drug Allergies (Verified Allergy, Mild, 02/17/19) PMhx/Soc Medical and Surgical Hx: pt denies Medical Hx, pt denies Surgical Hx History of Surgery: No Anesthesia Reaction: No Hx Neurological Disorder: No Hx Respiratory Disorders: No Hx Cardiac Disorders: No Hx Psychiatric Problems: No Hx Miscellaneous Medical Probl: No Hx Alcohol Use: No Hx Substance Use: No Hx Tobacco Use: No Smoking Status: Never smoker Physical Exam Vitals Physical Exam Const: No acute distress Head: Atraumatic Eyes: Normal Conjunctiva ENT: Normal External Ears, Nose and Mouth. Neck: Full range of motion. No meningismus. Resp: Clear to auscultation bilaterally Cardio: Regular rate and rhythm, no murmurs Abd: Soft, non tender, non distended. Normal bowel sounds Skin: No petechiae or rashes Back: No midline or flank tenderness Ext: No cyanosis, or edema. Left foot: Left big toe has swelling medially and laterally with redness and tenderness (its joints has good and full range of motion with very low suspicion of septic joint). No signs of paronychia. No signs of onychomycosis. No signs of felon. Capillary refills to left lower extremity is less than 2 seconds. Left pedal pulses within normal limits. Left ankle is unremarkable. Neur: Awake and alert. No neurological deficits. Psych: Normal Mood and Affect Results 24 hrs Current Medications Medications Dose Sig/Milena Start Time Status Last (Trade) Ordered Route PRN Stop Time Admin Dose Reason Admin Cephalexin 500 mg ONCE ONCE 04/22/19 DC 04/22/19 (Keflex) PO 05:00 04:52 04/22/19 05:00 1 tab ONCE ONCE 04/22/19 DC 04/22/19 Trimethoprim/ PO 05:00 04:52 04/22/19 05:00 Sulfamethoxaz ole (Bactrim (Ds)) 1 tab ONCE ONCE 04/22/19 DC 04/22/19 Acetaminophen PO 05:00 04:52 / 04/22/19 05:00 Hydrocodone Bitart ([place] (10/325)) Procedures/MDM Diagnostic tests: Clinical exam. Treatment: Bactrim. Keflex. [place]. Re-evaluation: Denies pain. Afebrile. Ambulatory with steady gait. No neurovascular deficit. No neurological deficits. Patient stated that he is comfortable going home. Differential diagnosis I have low suspicion for septic joint, paronychia, onychomycosis, subungual hematoma, felon, open fracture, osteomyelitis. Final diagnosis: Ingrown toenail. Prescription: Bactrim. Keflex. Motrin. Follow-up with PCP in the next 24 to 48 hours. Follow-up with hydrostatic tubing tester in the next 24 to 48 hours. Come back here in emergency department for any new symptoms or any worsening symptoms. All questions and concerns were answered. Patient and family members verbalized understanding and agreed with plan of care. Hemodynamically stable on discharge. Departure Diagnosis: Primary Impression: Ingrown nail of great toe of left foot Condition: Stable Additional Instructions: Follow-up with PCP in the next 24-48 hours. Follow-up with hydrostatic tubing tester in the next 24 to 48 hours. Come back here in the emergency department for any new symptoms or any worsening symptoms. RYAN GILL April 22, 2019 04:26
[2019-04-22] MEDS ORDERED: IBUP800T48 PO (04:40)
[2019-04-22] MEDS ORDERED: CEPH-443 PO (04:41)
[2019-04-22] MEDS ORDERED: SULF1TAB31 PO (04:41)
[2019-04-22] MEDS ORDERED: TRAM50TA2 PO (04:41)
[2019-04-22] MEDS ORDERED: TRIMETHOPRIM/SULFAMETHOX (DS) TAB PO ONE (05:00)
[2019-04-22] MEDS ORDERED: HYDROCODONE/APAP (10/325) TAB PO ONE (05:00)
[2019-04-22] MEDS ORDERED: CEPHALEXIN 500 MG CAP PO ONE (05:00)
== END 2019-04-22 04:58 | disposition home or self-care (01) ==
LOC: FTE 02:12
DX: L60.0 Ingrowing nail (principal)
CPT/HCPCS: L3260; Z7610; 99283